=== PATIENT | male | born 1990 | race Caucasian/White ===

== ENCOUNTER 2021-07-02 11:33 | Observation (INO) | payer OTHER ==
[2021-07-02] MEDS ORDERED: MORPHINE SULFATE 2 MG/ML SYRINGE IVP STA ×2 (11:52→13:18)
[2021-07-02] MEDS ORDERED: ONDANSETRON 4 MG/2 ML VIAL IVP STA (11:52)
[2021-07-02] MEDS ORDERED: SODIUM CHLORIDE 0.9% 1,000 ML IV STA (11:52)
--- NOTE | 2021-07-02 11:57 | ED ---
General Adult HPI - General Chief complaint: Abdominal Pain Stated complaint: ABD pain Time Seen by Provider: 07/02/21 11:36 Source: patient Mode of arrival: ambulatory Limitations: no limitations - History of Present Illness Initial comments: This 31-year-old male presents emergency department with abdominal pain that began at noon yesterday. Patient states he started to get some abdominal discomfort around lunchtime yesterday that slowly progressed throughout the day. Patient states today he began to have diarrhea along with vomiting that began this morning and states that is why he presented to the emergency department. Patient denies any hemoptysis or hematochezia. Patient states he has vomited 2 times and had 5-6 episodes of diarrhea today. Patient states his pain is worse with moving or pushing in the center of his abdomen around his umbilicus and feels the pain in bilateral lower quadrants R>L. Patient describes his pain as cramping and sometimes radiates to his back. Patient states his pain is 6/10. Patient states he has had some chills and sweats, however he has not taken his temperature at home. Patient denies any chest pain, shortness of breath, constipation, change in bladder, headache, change in vision, sore throat, cough, congestion or sore throat. Patient states he does smoke marijuana daily and has for years. - Related Data Allergies Allergy/AdvReac Type Severity Reaction Status Date / Time No Known Allergies Allergy Verified 07/02/21 11:36 Review of Systems ROS Statement: Those systems with pertinent positive or pertinent negative responses have been documented in the HPI. ROS Other: All systems not noted in ROS Statement are negative. Past Medical History Past Medical History: No Reported History History of Any Multi-Drug Resistant Organisms: None Reported Past Surgical History: No Surgical Hx Reported Past Psychological History: No Psychological Hx Reported Smoking Status: Current every day smoker, Vaper Past Alcohol Use History: None Reported Past Drug Use History: Marijuana General Exam Limitations: no limitations General appearance: alert, in no apparent distress Head exam: Present: atraumatic, normocephalic Eye exam: Present: normal appearance, PERRL, EOMI ENT exam: Present: mucous membranes moist Neck exam: Present: normal inspection, full ROM. Absent: tenderness, meningismus, lymphadenopathy Respiratory exam: Present: normal lung sounds bilaterally. Absent: respiratory distress, wheezes, rales, rhonchi, stridor, chest wall tenderness Cardiovascular Exam: Present: regular rate, normal rhythm, normal heart sounds. Absent: systolic murmur, diastolic murmur, rubs, gallop, clicks GI/Abdominal exam: Present: soft, tenderness (Diffuse tenderness to palpation in all quadrants, worse in bilateral lower quadrants and umbilicus R>L), normal bowel sounds. Absent: distended, guarding, rebound, rigid Extremities exam: Present: full ROM, normal capillary refill. Absent: pedal edema, joint swelling, calf tenderness Back exam: Present: normal inspection, full ROM, CVA tenderness (R). Absent: CVA tenderness (L), paraspinal tenderness, vertebral tenderness Neurological exam: Present: alert, oriented X3, CN II-XII intact, normal gait Psychiatric exam: Present: normal affect, normal mood Skin exam: Present: warm, dry, intact, normal color. Absent: rash Course Vital Signs 07/02/21 11:34 Temperature 97.6 F Pulse Rate 70 Respiratory 18 Rate Blood Pressure 107/66 O2 Sat by Pulse 97 Oximetry - Reevaluation(s) Reevaluation #1: 07/02/21 12:40 Patient currently states he is feeling symptom improvement. He states he does still have abdominal pain and discomfort, however he states he is not nauseous. On physical exam he does have significant tenderness to right lower and left lower quadrants. 07/02/21 13:[address] Olmedo, patient roping tender to palpation bilateral lower quadrants. We did inform him to keep him in observation and seen by surgery due to his pain and appendix not visualized on CT. Medical Decision Making - Medical Decision Making This 31-year-old male presents to the emergency department with abdominal pain, nausea, vomiting, diarrhea. CT abdomen and pelvis impression: Correlate for enterocolitis. Appendix was not visualized. Labs with WBC 10.8, coagulation unremarkable, chemistry unremarkable, urine 2+ ketones. Patient was given pain medication, fluids and Zofran and stated he had some relief, however he was roping tender in bilateral right and lower quadrants to palpation. Dr. Honorio santillan ssessed the patient and suggested we keep him in observation and seen by surgery. Patient verbally agreed to plan. I discussed this case with who agreed to see the patient and keep patient for observation. Patient placed on fluids, Zofran, morphine and Unasyn - Lab Data Result diagrams: 07/02/21 12:03 07/02/21 12:03 Lab Results 07/02/21 07/02/21 07/02/21 Range/Units 12:03 12:03 12:03 WBC 10.8 H (3.8-10.6) k/uL RBC 4.78 (4.30-5.90) m/uL Hgb 15.3 (13.0-17.5) gm/dL Hct 45.8 (39.0-53.0) % MCV 95.8 (80.0-100.0) fL MCH 32.0 (25.0-35.0) pg MCHC 33.4 (31.0-37.0) g/dL RDW 13.4 (11.5-15.5) % Plt Count 247 (150-450) k/uL MPV 7.1 Neutrophils % 88 % Lymphocytes % 7 % Monocytes % 4 % Eosinophils % 1 % Basophils % 0 % Neutrophils # 9.5 H (1.3-7.7) k/uL Lymphocytes # 0.7 L (1.0-4.8) k/uL Monocytes # 0.4 (0-1.0) k/uL Eosinophils # 0.1 (0-0.7) k/uL Basophils # 0.0 (0-0.2) k/uL PT 10.9 (9.0-12.0) sec INR 1.0 (<1.2) APTT 26.7 (22.0-30.0) sec Sodium (137-145) mmol/L Potassium (3.5-5.1) mmol/L Chloride (98-107) mmol/L Carbon Dioxide (22-30) mmol/L Anion Gap mmol/L BUN (9-20) mg/dL Creatinine (0.66-1.25) mg/dL Est GFR (CKD-EPI)AfAm (>60 ml/min/1.73 sqM) Est GFR (CKD-EPI)NonAf (>60 ml/min/1.73 sqM) Glucose (74-99) mg/dL Plasma Lactic Acid Rivera (0.7-2.0) mmol/L Calcium (8.4-10.2) mg/dL Total Bilirubin (0.2-1.3) mg/dL AST (17-59) U/L ALT (4-49) U/L Alkaline Phosphatase (38-126) U/L Total Protein (6.3-8.2) g/dL Albumin (3.5-5.0) g/dL Lipase (23-300) U/L Urine Color Yellow Urine Appearance Clear (Clear) Urine pH 6.0 (5.0-8.0) Ur Specific [place] 1.025 (1.001-1.035) Urine Protein Trace H (Negative) Urine Glucose (UA) Negative (Negative) Urine Ketones 2+ H (Negative) Urine Blood Negative (Negative) Urine Nitrite Negative (Negative) Urine Bilirubin Negative (Negative) Urine Urobilinogen 2.0 (<2.0) mg/dL Ur Leukocyte Esterase Negative (Negative) 07/02/21 07/02/21 Range/Units 12:03 12:03 WBC (3.8-10.6) k/uL RBC (4.30-5.90) m/uL Hgb (13.0-17.5) gm/dL Hct (39.0-53.0) % MCV (80.0-100.0) fL MCH (25.0-35.0) pg MCHC (31.0-37.0) g/dL RDW (11.5-15.5) % Plt Count (150-450) k/uL MPV Neutrophils % % Lymphocytes % % Monocytes % % Eosinophils % % Basophils % % Neutrophils # (1.3-7.7) k/uL Lymphocytes # (1.0-4.8) k/uL Monocytes # (0-1.0) k/uL Eosinophils # (0-0.7) k/uL Basophils # (0-0.2) k/uL PT (9.0-12.0) sec INR (<1.2) APTT (22.0-30.0) sec Sodium 137 (137-145) mmol/L Potassium 4.2 (3.5-5.1) mmol/L Chloride 106 (98-107) mmol/L Carbon Dioxide 23 (22-30) mmol/L Anion Gap 8 mmol/L BUN 11 (9-20) mg/dL Creatinine 0.77 (0.66-1.25) mg/dL Est GFR (CKD-EPI)AfAm >90 (>60 ml/min/1.73 sqM) Est GFR (CKD-EPI)NonAf >90 (>60 ml/min/1.73 sqM) Glucose 108 H (74-99) mg/dL Plasma Lactic Acid Rivera 1.1 (0.7-2.0) mmol/L Calcium 9.6 (8.4-10.2) mg/dL Total Bilirubin 0.6 (0.2-1.3) mg/dL AST 28 (17-59) U/L ALT 25 (4-49) U/L Alkaline Phosphatase 85 (38-126) U/L Total Protein 8.4 H (6.3-8.2) g/dL Albumin 4.8 (3.5-5.0) g/dL Lipase 31 (23-300) U/L Urine Color Urine Appearance (Clear) Urine pH (5.0-8.0) Ur Specific [place] (1.001-1.035) Urine Protein (Negative) Urine Glucose (UA) (Negative) Urine Ketones (Negative) Urine Blood (Negative) Urine Nitrite (Negative) Urine Bilirubin (Negative) Urine Urobilinogen (<2.0) mg/dL Ur Leukocyte Esterase (Negative) Disposition Clinical Impression: Right lower quadrant pain, Nausea and vomiting, Diarrhea Disposition: ADMITTED IP TO THIS [facility] Condition: Serious Is patient prescribed a controlled substance at d/c from ED?: No Referrals: None,Stated [Primary Care Provider] - 1-2 days Time of Disposition: 13:25
[2021-07-02 12:12] LABS: Appearance,Urine Clear (Clear); Bilirubin,Urine Negative (Negative); Blood,Urine Negative (Negative); Color,Urine Yellow; Glucose,Urine (UA) Negative (Negative); Ketones,Urine 2+ (Negative); Leukocyte Esterase,Urine Negative (Negative); Nitrite,Urine Negative (Negative); Protein,Urine Trace (Negative); Specific Gravity,Urine 1.025 (1.001-1.035)
[2021-07-02 12:20] LABS: ALT 25 U/L (4-49); AST 28 U/L (17-59); African American GFR (CKD) >90 (>60 ml/min/1.73 sqM); Albumin 4.8 g/dL (3.5-5.0); Alkaline Phosphatase 85 U/L (38-126); Anion Gap 8 mmol/L; Blood Urea Nitrogen 11 mg/dL (9-20); Calcium 9.6 mg/dL (8.4-10.2); Carbon Dioxide 23 mmol/L (22-30); Chloride 106 mmol/L (98-107); Glucose 108 mg/dL (74-99); Lipase 31 U/L (23-300); Non-African American GFR(CKD) >90 (>60 ml/min/1.73 sqM); Potassium 4.2 mmol/L (3.5-5.1); Sodium 137 mmol/L (137-145); Total Bilirubin 0.6 mg/dL (0.2-1.3); Total Protein 8.4 g/dL (6.3-8.2)
[2021-07-02 12:21] LABS: Partial Thromboplastin Time 26.7 sec (22.0-30.0); Prothrombin Time 10.9 sec (9.0-12.0)
[2021-07-02 12:35] LABS: Basophils % (A) 0 %; Eosinophils # (A) 0.1 k/uL (0-0.7); Eosinophils % (A) 1 %; HCT 45.8 % (39.0-53.0); HGB 15.3 gm/dL (13.0-17.5); Lymphocytes # (A) 0.7 k/uL (1.0-4.8); Lymphocytes % (A) 7 %; MCHC 33.4 g/dL (31.0-37.0); MCV 95.8 fL (80.0-100.0); Mean Platelet Volume 7.1; Monocytes # (A) 0.4 k/uL (0-1.0); Monocytes % (A) 4 %; Neutrophils # (A) 9.5 k/uL (1.3-7.7); Neutrophils % (A) 88 %; Platelet Count 247 k/uL (150-450); RBC 4.78 m/uL (4.30-5.90); RDW 13.4 % (11.5-15.5); WBC 10.8 k/uL (3.8-10.6)
--- NOTE | 2021-07-02 12:43 | CT ---
EXAMINATION TYPE: CT abdomen pelvis w con DATE OF EXAM: 07/02/2021 COMPARISON: None HISTORY: pain, nausea, vomiting, diarrhea CT DLP: 611.4 mGycm CONTRAST: CT scan of the abdomen and pelvis is performed without Oral Contrast and with IV Contrast, patient in jected with 100 mL of Isovue 300. FINDINGS: LUNG BASES-: No visible nodule. No infiltrate. LIVER/GB: No calcified gallstones. No space occupying hepatic lesion. Biliary tree is of normal ca liber. PANCREAS: No inflammation. No distinct mass. SPLEEN: No splenic enlargement. No lesion seen. ADRENALS: No nodule. No thickening. KIDNEYS/BLADDER: No hydronephrosis. No nephrolithiasis. No distinct renal mass. Urinary bladder g rossly unremarkable. BOWEL: There is wall thickening and fluid distention of small bowel. Wall thickening of the right hem icolon noted as well. Findings may reflect nonspecific enterocolitis. The appendix is not clearly vis ualized and strict clinical correlation is advised. Small amount of free change in the pelvis. No lizz e air or abscess. GENITAL ORGANS: No gross abnormality. LYMPH NODES: No greater than 1cm abdominal or pelvic lymph nodes are appreciated. AORTA: No significant abnormality. OSSEOUS STRUCTURES: No significant abnormality is seen. OTHER: No significant additional abnormality is seen. IMPRESSION: 1. Correlate for enterocolitis. 2. Nonvisualization of the appendix. 3. Small fluid within the pelvis.
[2021-07-02] MEDS ORDERED: ONDANSETRON 4 MG/2 ML VIAL IVP PRN (13:21)
[2021-07-02] MEDS ORDERED: NALOXONE 0.4 MG/ML 1 ML VIAL IV PRN (13:21)
[2021-07-02] MEDS: SODIUM CHLORIDE 0.9% 1,000 ML IV SCH ×2 (14:42→20:13)
[2021-07-02] MEDS: AMPICILLIN-SULBACTAM 1.5 GM in SODIUM CHLORIDE 0.9% 50 ML IVPB SCH ×2 (14:42→20:05)
[2021-07-02] MEDS: MORPHINE SULFATE 4 MG/ML SYRINGE IV PRN ×2 (16:30→20:13)
[2021-07-03] MEDS: MORPHINE SULFATE 4 MG/ML SYRINGE IV PRN ×2 (01:16→05:35)
[2021-07-03] MEDS: AMPICILLIN-SULBACTAM 1.5 GM in SODIUM CHLORIDE 0.9% 50 ML IVPB SCH ×4 (02:05→19:22)
[2021-07-03] MEDS: SODIUM CHLORIDE 0.9% 1,000 ML IV SCH ×2 (05:35→13:55)
[2021-07-03 08:35] LABS: Basophils % (A) 0 %; Eosinophils # (A) 0.1 k/uL (0-0.7); Eosinophils % (A) 1 %; HCT 42.1 % (39.0-53.0); HGB 13.9 gm/dL (13.0-17.5); Lymphocytes # (A) 1.3 k/uL (1.0-4.8); Lymphocytes % (A) 19 %; MCV 96.9 fL (80.0-100.0); Monocytes # (A) 0.3 k/uL (0-1.0); Monocytes % (A) 4 %; Neutrophils # (A) 4.8 k/uL (1.3-7.7); Neutrophils % (A) 73 %; Platelet Count 216 k/uL (150-450); RBC 4.35 m/uL (4.30-5.90); RDW 13.4 % (11.5-15.5); WBC 6.6 k/uL (3.8-10.6)
[2021-07-03 08:40] LABS: African American GFR (CKD) >90 (>60 ml/min/1.73 sqM); Anion Gap 7 mmol/L; Blood Urea Nitrogen 13 mg/dL (9-20); Calcium 8.7 mg/dL (8.4-10.2); Carbon Dioxide 22 mmol/L (22-30); Chloride 107 mmol/L (98-107); Glucose 76 mg/dL (74-99); Non-African American GFR(CKD) >90 (>60 ml/min/1.73 sqM); Sodium 136 mmol/L (137-145)
[2021-07-03] MEDS: ACETAMINOPHEN TAB 325 MG TAB PO PRN ×2 (10:15→19:24)
--- NOTE | 2021-07-03 13:21 | P.GSHP ---
History of Present Illness H&P Date: 07/03/21 CHIEF COMPLAINT: Abdominal pain HISTORY OF PRESENT ILLNESS: This is a 31-year-old male who presented to the hospital with complaints of lower abdominal pain across the lower abdomen that started Saturday. He describes the pain as a cramping sensation. He has been having vomiting and diarrhea. The vomiting and diarrhea started on Saturday. He also was having chills. Denies any blood in his stools. Patient has been having low-grade temp 99. Computed tomography scan showed evidence of an ente rocolitis. Currently on IV antibiotics. He had no further vomiting. He had 3 episodes of diarrhea through the night. Patient denies any history of colonoscopy. Denies any sick contacts. Denies any recent traveling. Patient reports having an episode of a small amount of blood in stool about a week ago which happen sometimes with his hemorrhoids. PAST MEDICAL HISTORY: none PAST SURGICAL HISTORY: No prior surgeries MEDICATIONS: See list. ALLERGIES: See list. SOCIAL HISTORY: No illicit drug use. Marijuana use. They being REVIEW OF SYSTEMS: CONSTITUTIONAL: Denies fever or chills. HEENT: Denies blurred vision, vision changes, or eye pain. Denies hemoptysis CARDIOVASCULAR: Denies chest pain or pressure. RESPIRATORY: No shortness of breath. GASTROINTESTINAL: See HPI for pertinent findings HEMATOLOGIC: Denies bleeding disorders. GENITOURINARY: Denies any blood in urine or increased urinary frequency. SKIN: Denies pruitis. Denies rash. PHYSICAL EXAM: VITAL SIGNS: Reviewed GENERAL: Well-developed in no acute distress. HEENT: No sclera icterus. Extraocular movements grossly intact. Moist buccal mucosa. Head is atraumatic, normocephalic. No nasal drainage. ABDOMEN: Soft. Nondistended. Tenderness with palpation across the lower abdomen NEUROLOGIC: Alert and oriented. Cranial nerves II through XII grossly intact. LABORATORY DATA: WBC 10.8 down to 6.6 hemoglobin 13.9 platelets 216 Sodium 136 potassium 4.0 creatinine 0.68 Liver enzymes normal lipase 31 IMAGING: Computed tomography scan abdomen and pelvis correlate for enterocolitis. Nonvisualization of the appendix. Small fluid within the pelvis. ASSESSMENT: 1. Lower abdominal pain likely secondary to enterocolitis 2. Vomiting and diarrhea PLAN: -No surgical intervention planned -Continue supportive care -Start clear liquids and then advance as tolerated -GI service normally would be consult at. They are not available at this time -Anticipate discharge possibly tomorrow -Continue antibiotics -Continue IV fluids -Continue antiemetics -Continue pain medication as needed -Consult medicine service for medical management -GI prophylaxis Pepcid and DVT prophylaxis subcu heparin Physician [employer] note has been reviewed by physician. Signing provider agrees with the documented findings, assessment, and plan of care. Past Medical History Past Medical History: No Reported History History of Any Multi-Drug Resistant Organisms: None Reported Past Surgical History: No Surgical Hx Reported Past Psychological History: No Psychological Hx Reported Smoking Status: Former smoker Past Alcohol Use History: None Reported Past Drug Use History: Marijuana - Past Family History Mother History Unknown: Yes Additional Family Medical History / Comment(s): had appendix removed as a Medications and Allergies Home Medications Medication Instructions Recorded Confirmed Type No Known Home Medications 07/02/21 07/02/21 History Allergies Allergy/AdvReac Type Severity Reaction Status Date / Time No Known Allergies Allergy Verified 07/02/21 14:41 Surgical - Exam Vital Signs Temp Pulse Resp BP Pulse Ox 97.6 F 70 18 107/66 97 07/02/21 11:34 07/02/21 11:34 07/02/21 11:34 07/02/21 11:34 07/02/21 11:34 Results - Labs 07/03/21 08:04 07/03/21 08:04 Abnormal Lab Results - Last 24 Hours (Table) 07/02/21 07/02/21 07/02/21 Range/Units 12:03 12:03 12:03 WBC 10.8 H (3.8-10.6) k/uL Neutrophils # 9.5 H (1.3-7.7) k/uL Lymphocytes # 0.7 L (1.0-4.8) k/uL Sodium (137-145) mmol/L Glucose 108 H (74-99) mg/dL Total Protein 8.4 H (6.3-8.2) g/dL Urine Protein Trace H (Negative) Urine Ketones 2+ H (Negative) 07/03/21 Range/Units 08:04 WBC (3.8-10.6) k/uL Neutrophils # (1.3-7.7) k/uL Lymphocytes # (1.0-4.8) k/uL Sodium 136 L (137-145) mmol/L Glucose (74-99) mg/dL Total Protein (6.3-8.2) g/dL Urine Protein (Negative) Urine Ketones (Negative) Diabetes panel 07/02/21 07/03/21 Range/Units 12:03 08:04 Sodium 137 136 L (137-145) mmol/L Potassium 4.2 4.0 (3.5-5.1) mmol/L Chloride 106 107 (98-107) mmol/L Carbon Dioxide 23 22 (22-30) mmol/L BUN 11 13 (9-20) mg/dL Creatinine 0.77 0.68 (0.66-1.25) mg/dL Glucose 108 H 76 (74-99) mg/dL Calcium 9.6 8.7 (8.4-10.2) mg/dL AST 28 (17-59) U/L ALT 25 (4-49) U/L Alkaline Phosphatase 85 (38-126) U/L Total Protein 8.4 H (6.3-8.2) g/dL Albumin 4.8 (3.5-5.0) g/dL Calcium panel 07/02/21 07/03/21 Range/Units 12:03 08:04 Calcium 9.6 8.7 (8.4-10.2) mg/dL Albumin 4.8 (3.5-5.0) g/dL Pituitary panel 07/02/21 07/03/21 Range/Units 12:03 08:04 Sodium 137 136 L (137-145) mmol/L Potassium 4.2 4.0 (3.5-5.1) mmol/L Chloride 106 107 (98-107) mmol/L Carbon Dioxide 23 22 (22-30) mmol/L BUN 11 13 (9-20) mg/dL Creatinine 0.77 0.68 (0.66-1.25) mg/dL Glucose 108 H 76 (74-99) mg/dL Calcium 9.6 8.7 (8.4-10.2) mg/dL Adrenal panel 07/02/21 07/03/21 Range/Units 12:03 08:04 Sodium 137 136 L (137-145) mmol/L Potassium 4.2 4.0 (3.5-5.1) mmol/L Chloride 106 107 (98-107) mmol/L Carbon Dioxide 23 22 (22-30) mmol/L BUN 11 13 (9-20) mg/dL Creatinine 0.77 0.68 (0.66-1.25) mg/dL Glucose 108 H 76 (74-99) mg/dL Calcium 9.6 8.7 (8.4-10.2) mg/dL Total Bilirubin 0.6 (0.2-1.3) mg/dL AST 28 (17-59) U/L ALT 25 (4-49) U/L Alkaline Phosphatase 85 (38-126) U/L Total Protein 8.4 H (6.3-8.2) g/dL Albumin 4.8 (3.5-5.0) g/dL
[2021-07-03] MEDS: FAMOTIDINE 20 MG TAB PO SCH (19:21)
[2021-07-03] MEDS: HEPARIN SODIUM,PORCINE/PF 5,000 UNIT/0.5 ML SYRINGE SQ SCH (19:21)
[2021-07-04] MEDS: SODIUM CHLORIDE 0.9% 1,000 ML IV SCH ×2 (01:32→06:25)
[2021-07-04] MEDS: AMPICILLIN-SULBACTAM 1.5 GM in SODIUM CHLORIDE 0.9% 50 ML IVPB SCH ×2 (01:44→08:00)
[2021-07-04] MEDS: FAMOTIDINE 20 MG TAB PO SCH (07:59)
[2021-07-04] MEDS: HEPARIN SODIUM,PORCINE/PF 5,000 UNIT/0.5 ML SYRINGE SQ SCH (07:59)
[2021-07-04 09:35] VITALS: BP 138/71; PULSE 71; RESP 18; TEMP 98.4
[2021-07-04] MEDS: ACETAMINOPHEN TAB 325 MG TAB PO PRN (10:39)
--- NOTE | 2021-07-04 11:33 | P.DS ---
Providers Date of admission: 07/02/21 13:30 Expected date of discharge: 07/04/21 Attending physician: Chase Alston Consults: 07/03/21 11:32 Consult Physician Routine Consulting Provider: Petar Hoyt Consult Reason/Comments: medical management Do you want consulting provider notified?: Yes Primary care physician: Stated None Hospital Course: discharge diagnosis 1. Lower abdominal pain, vomiting and diarrhea secondary to enterocolitis Hospital course This is a 31-year-old male who presented to the hospital with complaints of lower abdominal pain across the lower abdomen that started Saturday. He describes the pain as a cramping sensation. He has been having vomiting and diarrhea. The vomiting and diarrhea started on Saturday. He also was having chills. Denies any blood in his stools. Patient has been having low-grade temp 99. Computed tomography scan showed evidence of an enterocolitis. Patient's abdominal pain and vomiting diarrhea have shown improvement. He has been afebrile. He is tolerating advancement of regular diet. Patient is stable for discharge. He'll be discharged home with Augmentin. Patient follow-up with Dr. Alston to discuss outpatient colonoscopy. Physician [employer] note has been reviewed by physician. Signing provider agrees with the documented findings, assessment, and plan of care. Patient Condition at Discharge: Stable Plan - Discharge Summary Discharge Rx Participant: No New Discharge Prescriptions: New Amoxicillin/Potassium Clav [Augmentin 875-125 Tablet] 1 tab PO Q12HR 7 Days #14 tab Discharge Medication List Amoxicillin/Potassium Clav [Augmentin 875-125 Tablet] 1 tab PO Q12HR 7 Days #14 tab 07/04/21 [Rx] Follow up Appointment(s)/Referral(s): None,Stated [Primary Care Provider] - 1-2 days Chase Alston MD [STAFF PHYSICIAN] - 1 Week Activity/Diet/Wound Care/Special Instructions: Activity as tolerated Regular diet Discharge Disposition: HOME SELF-CARE
--- NOTE | 2021-07-04 14:32 | CONS ---
CONSULTATION REASON FOR CONSULTATION: Abdominal pain and diarrhea requested by surgery. HISTORY OF PRESENT ILLNESS: This 31-year-old gentleman with a past medical history of no significant medical issues being followed by no primary physician in the outpatient setting was admitted with abdominal pain and diarrhea. Patient apparently was eating salmon. The salmon patties were not fully cooked according to him. The patient had abdominal/pelvis CAT scan which showed possible enterocolitis and small fluid within the pelvis also. No chest pain. No palpitations. No fever. PAST MEDICAL HISTORY: No significant cardiovascular illness. MEDICATIONS: Medications none. ALLERGIES: None. FAMILY HISTORY: No significant cardiovascular/pulmonary disease in the family. SOCIAL HISTORY: Previous history of smoking, THC. REVIEW OF SYSTEMS: 14-point review of system is negative except mentioned earlier. PHYSICAL EXAMINATION: Pulse 63, blood pressure 130/64, respirations 15. HEENT: Conjunctive normal. CARDIOVASCULAR system: S1, S2 muffled. RESPIRATION: Breath sounds diminished in the bases. A few scattered rhonchi. ABDOMEN: Soft. Mild diffuse tenderness present. No guarding. No rigidity. Bowel sounds present. LEGS: No edema. No swelling. NERVOUS SYSTEM: No focal deficits. LAB: WBC 6.7, hemoglobin 13.9, sodium 136. ASSESSMENT: 1. Abdominal pain, diarrhea, possible enterocolitis. 2. Rule out food poisoning. 3. Elevated WBC. RECOMMENDATIONS AND DISCUSSION: Recommend to continue current medications, and continue symptomatic treatment, continue the antibiotics, proton pump inhibitors, DVT prophylaxis. Incentive spirometry. We will closely follow with you. Thank you, Dr. Alston. MMODL / IJN: [id number] /
== END 2021-07-04 13:40 | disposition home or self-care (01) ==
LOC: EC 11:33 → 6NMEDSUR 13:30 → 4SSUR 13:35
PROVIDERS: ADMIT Surgery; ATTEND Surgery
DX: K52.9 Noninfective gastroenteritis and colitis, unspecified (principal); K64.9 Unspecified hemorrhoids; F17.290 Nicotine dependence, other tobacco product, uncomplicated; Z90.49 Acquired absence of other specified parts of digestive tract
CPT/HCPCS: 96376 ×2; 96361 ×3; 96365; 96366 ×3; 96372 ×2; 96375; 99285; 36415; 80053; 80048; 83605; 83690; 85025 ×2; 85610; 85730; 81003; 87635; 74177; G0378 ×4; J2270 ×3; J2405; J0295 ×3; Q9967; J1644 ×2

== ENCOUNTER 2021-07-07 14:15 | Emergency (ER) | payer OTHER ==
[2021-07-07 14:30] VITALS: TEMP 98.9
[2021-07-07 15:46] LABS: HCT 38.5 % (39.0-53.0); HGB 12.5 gm/dL (13.0-17.5); MCHC 32.5 g/dL (31.0-37.0); MCV 95.4 fL (80.0-100.0); Platelet Count 296 k/uL (150-450); RBC 4.04 m/uL (4.30-5.90); RDW 13.3 % (11.5-15.5); WBC 5.5 k/uL (3.8-10.6)
--- NOTE | 2021-07-07 15:54 | ED ---
GI Bleed HPI - General Chief complaint: GI Bleed Stated complaint: Bloody Stool Time Seen by Provider: 07/07/21 14:58 Source: patient, RN notes reviewed Mode of arrival: ambulatory Limitations: no limitations - History of Present Illness Initial comments: This is a 31-year-old male who presents to the emergency department for rectal bleeding. He was discharged from the hospital 3 days ago for enterocolitis. States that his discharge paperwork advised him to return to the hospital if he experiences rectal bleeding. He had an episode of rectal bleeding this morning around 10 AM and describes it as being dark red. Prior to this he has softer stools. Denies any history of GI bleeding. When he was in the hospital earlier this week, he had abdominal pain but no rectal bleeding. States that he has mild-moderate abdominal pain at this time. Denies any nausea or vomiting, fevers or chills. MD complaint: gross hematochezia Radiation: none Improves with: none - Related Data Home Medications Medication Instructions Recorded Confirmed Amoxicillin/Potassium Clav 1 tab PO BID 07/07/21 07/07/21 [Augmentin 875-125 Tablet] Allergies Allergy/AdvReac Type Severity Reaction Status Date / Time No Known Allergies Allergy Verified 07/07/21 17:41 Review of Systems ROS Statement: Those systems with pertinent positive or pertinent negative responses have been documented in the HPI. ROS Other: All systems not noted in ROS Statement are negative. Constitutional: Denies: fever, chills ENT: Denies: ear pain, throat pain Respiratory: Denies: cough, dyspnea Cardiovascular: Denies: chest pain, palpitations Gastrointestinal: Reports: abdominal pain, hematochezia. Denies: nausea, vomiting, diarrhea, constipation, hematemesis Genitourinary: Denies: urgency, dysuria Musculoskeletal: Denies: back pain Skin: Denies: rash, lesions Neurological: Denies: headache Past Medical History Past Medical History: No Reported History History of Any Multi-Drug Resistant Organisms: None Reported Past Surgical History: No Surgical Hx Reported Past Psychological History: No Psychological Hx Reported Smoking Status: Former smoker Past Alcohol Use History: None Reported Past Drug Use History: Marijuana - Past Family History Mother History Unknown: Yes Additional Family Medical History / Comment(s): had appendix removed as a General Exam Limitations: no limitations General appearance: alert, in no apparent distress Head exam: Present: atraumatic, normocephalic, normal inspection Respiratory exam: Present: normal lung sounds bilaterally. Absent: respiratory distress, wheezes, rales, rhonchi, stridor Cardiovascular Exam: Present: regular rate, normal rhythm, normal heart sounds. Absent: systolic murmur, diastolic murmur, rubs, gallop, clicks GI/Abdominal exam: Present: soft, normal bowel sounds. Absent: distended, tenderness, guarding, rebound, rigid Neurological exam: Present: alert, oriented X3, CN II-XII intact Psychiatric exam: Present: normal affect, normal mood Skin exam: Present: warm, dry, intact, normal color. Absent: rash Course Vital Signs 07/07/21 14:28 Temperature 98.9 F Pulse Rate 82 Respiratory 20 Rate Blood Pressure 110/61 O2 Sat by Pulse 97 Oximetry Medical Decision Making - Medical Decision Making This is a 31-year-old male who presents to the emergency room with rectal bleeding. Computed tomography scan of the abdomen and pelvis could not rule out a peritonitis, there is also concern for a small bowel intussusception without obstruction, and he is also noted to have elevated liver enzymes compared to his lab work 5 days ago. Denies any history of alcohol use. I reached out to Dr. Ferris, who advised I speak with Dr. Alston, since he evaluated the patient during his previous admission. Dr. Alston states that the patient can be evaluated as an outpatient next week. I also spike with Dr. Tanner from [facility], who is concerned about the patient, and recommended transfer to another hospital where he can be evaluated by gastroenterology. Discussed with the patient that his options at this point are essentially going home and following up with Dr. Alston as an outpatient, or being transferred to another hospital for a more urgent gastroenterology evaluation. Patient plans to go to [facility], but would like to go with his by private vehicle instead of being transferred by EMS. - Lab Data Result diagrams: 07/07/21 15:29 07/07/21 15:29 Lab Results 07/07/21 07/07/21 07/07/21 Range/Units 15:29 15:29 15:29 WBC 5.5 (3.8-10.6) k/uL RBC 4.04 L (4.30-5.90) m/uL Hgb 12.5 L (13.0-17.5) gm/dL Hct 38.5 L (39.0-53.0) % MCV 95.4 (80.0-100.0) fL MCH 31.0 (25.0-35.0) pg MCHC 32.5 (31.0-37.0) g/dL RDW 13.3 (11.5-15.5) % Plt Count 296 (150-450) k/uL MPV 7.0 Neutrophils % (Manual) 41 % Lymphocytes % (Manual) 46 % Monocytes % (Manual) 5 % Eosinophils % (Manual) 8 % Neutrophils # (Manual) 2.26 (1.3-7.7) k/uL Lymphocytes # (Manual) 2.53 (1.0-4.8) k/uL Monocytes # (Manual) 0.28 (0-1.0) k/uL Eosinophils # (Manual) 0.44 (0-0.7) k/uL Nucleated RBCs 0 (0-0) /100 WBC Manual Slide Review Performed APTT 26.7 (22.0-30.0) sec Sodium 139 (137-145) mmol/L Potassium 4.2 (3.5-5.1) mmol/L Chloride 105 (98-107) mmol/L Carbon Dioxide 29 (22-30) mmol/L Anion Gap 5 mmol/L BUN 8 L (9-20) mg/dL Creatinine 0.60 L (0.66-1.25) mg/dL Est GFR (CKD-EPI)AfAm >90 (>60 ml/min/1.73 sqM) Est GFR (CKD-EPI)NonAf >90 (>60 ml/min/1.73 sqM) Glucose 81 (74-99) mg/dL Plasma Lactic Acid Rivera (0.7-2.0) mmol/L Calcium 8.7 (8.4-10.2) mg/dL Total Bilirubin 0.4 (0.2-1.3) mg/dL AST 121 H (17-59) U/L ALT 120 H (4-49) U/L Alkaline Phosphatase 60 (38-126) U/L Total Protein 7.0 (6.3-8.2) g/dL Albumin 4.0 (3.5-5.0) g/dL Amylase 50 (30-110) U/L Lipase 44 (23-300) U/L 07/07/21 Range/Units 15:29 WBC (3.8-10.6) k/uL RBC (4.30-5.90) m/uL Hgb (13.0-17.5) gm/dL Hct (39.0-53.0) % MCV (80.0-100.0) fL MCH (25.0-35.0) pg MCHC (31.0-37.0) g/dL RDW (11.5-15.5) % Plt Count (150-450) k/uL MPV Neutrophils % (Manual) % Lymphocytes % (Manual) % Monocytes % (Manual) % Eosinophils % (Manual) % Neutrophils # (Manual) (1.3-7.7) k/uL Lymphocytes # (Manual) (1.0-4.8) k/uL Monocytes # (Manual) (0-1.0) k/uL Eosinophils # (Manual) (0-0.7) k/uL Nucleated RBCs (0-0) /100 WBC Manual Slide Review APTT (22.0-30.0) sec Sodium (137-145) mmol/L Potassium (3.5-5.1) mmol/L Chloride (98-107) mmol/L Carbon Dioxide (22-30) mmol/L Anion Gap mmol/L BUN (9-20) mg/dL Creatinine (0.66-1.25) mg/dL Est GFR (CKD-EPI)AfAm (>60 ml/min/1.73 sqM) Est GFR (CKD-EPI)NonAf (>60 ml/min/1.73 sqM) Glucose (74-99) mg/dL Plasma Lactic Acid Rivera 0.8 (0.7-2.0) mmol/L Calcium (8.4-10.2) mg/dL Total Bilirubin (0.2-1.3) mg/dL AST (17-59) U/L ALT (4-49) U/L Alkaline Phosphatase (38-126) U/L Total Protein (6.3-8.2) g/dL Albumin (3.5-5.0) g/dL Amylase (30-110) U/L Lipase (23-300) U/L - Radiology Data Radiology results: report reviewed, image reviewed Disposition Clinical Impression: Elevated liver enzymes, Hematochezia, Intussusception of intestine Disposition: OTHER INSTITUTION NOT DEFINED Instructions (If sedation given, give patient instructions): Gastrointestinal Bleeding (ED) Referrals: None,Stated [Primary Care Provider] - 1-2 days - Out of Hospital Transfer - Req. Specs Out of Hospital Transfer - Requested Specifics: Other Emergency Center ([facility])
[2021-07-07 16:08] LABS: Sodium 139 mmol/L (137-145)
[2021-07-07 16:09] LABS: ALT 120 U/L (4-49); AST 121 U/L (17-59); African American GFR (CKD) >90 (>60 ml/min/1.73 sqM); Alkaline Phosphatase 60 U/L (38-126); Amylase 50 U/L (30-110); Anion Gap 5 mmol/L; Blood Urea Nitrogen 8 mg/dL (9-20); Calcium 8.7 mg/dL (8.4-10.2); Carbon Dioxide 29 mmol/L (22-30); Chloride 105 mmol/L (98-107); Glucose 81 mg/dL (74-99); Lipase 44 U/L (23-300); Non-African American GFR(CKD) >90 (>60 ml/min/1.73 sqM); Potassium 4.2 mmol/L (3.5-5.1); Total Bilirubin 0.4 mg/dL (0.2-1.3)
--- NOTE | 2021-07-07 16:26 | CT ---
EXAMINATION TYPE: CT abdomen pelvis w con DATE OF EXAM: 07/07/2021 COMPARISON: CT dated 07/02/2021 HISTORY: ABD pain and diarrhea x 1 week, bloody stool x [address] DLP: 569.2 mGycm Automated exposure control for dose reduction was used. TECHNIQUE: Helical acquisition of images was performed from the lung bases through the pelvis. CONTRAST: Performed without Oral Contrast and with IV Contrast, patient injected with 100ml mL of Isovue 300. FINDINGS: LUNG BASES: No significant abnormality is appreciated. LIVER/GB: Enlarged liver measuring 20 cm. No definite hepatic focal lesion. Unremarkable gallbladder. PANCREAS: No significant abnormality is seen. SPLEEN: No significant abnormality is seen. ADRENALS: No significant abnormality is seen. KIDNEYS: No significant abnormality is seen. FREE AIR: No free air is visualized. RETROPERITONEAL ADENOPATHY: None visualized REPRODUCTIVE ORGANS: No significant abnormality is seen URINARY BLADDER: No significant abnormality is seen. PELVIC ADENOPATHY: None visualized. OSSEOUS STRUCTURES: No aggressive bone lesion. BOWEL: Distended stomach. Unremarkable duodenum. Suboptimal assessment of the small and large bowel due to paucity of intra-abdominal fat and lack of oral contrast administration. Segments of small bow el thickening, probably related to mild inflammatory changes like enteritis. Suspected small bowel in tussusception seen in the midline in the lower abdomen best appreciated in image #51, series 201 and image #60, series 203. No bowel obstruction however there is possible pneumatosis of the small bowel at that location versus luminal gas. No free peritoneal air or portal venous gas. Segments of colonic wall thickening with surrounding fat stranding, also seen in the rectum which could be related to mi ld colitis/proctitis. Fecal loading of the proximal colon. It is not possible to exclude acute divert iculitis or other acute colonic abnormality by this CT scan. Small amount of free pelvic fluid. OTHER: Unremarkable abdominal aorta. Peritoneal fat stranding, peritonitis cannot be excluded, please correlate clinically. IMPRESSION: Suboptimal assessment of the small and large bowel as described above. With this limitation, there ar e persistent signs suggestive of acute inflammatory/infectious process of the small and large bowel. Small amount of free pelvic fluid with peritoneal fat stranding, peritonitis can't be excluded. Suspected short segment of small bowel intussusception in the midline in the lower abdomen below the level of the umbilicus as detailed above without evidence of bowel obstruction. Small bowel pneumatos is versus air is seen at that location. Recommend clinical correlation and surgical consultation. Ot er incidental findings as described above.
[2021-07-07 17:06] LABS: Eosinophils # (M) 0.44 k/uL (0-0.7); Lymphocytes # (M) 2.53 k/uL (1.0-4.8); Monocytes # (M) 0.28 k/uL (0-1.0); Neutrophils # (M) 2.26 k/uL (1.3-7.7); Neutrophils % (M) 41 %; Nucleated Red Blood Cells 0 /100 WBC (0-0); Total Cells Counted 100
[2021-07-07 18:42] VITALS: PULSE 87; RESP 18
[2021-07-07 18:59] VITALS: BP 121/78
== END 2021-07-07 19:04 | disposition other institution (70) ==
LOC: EC 14:15
DX: K92.1 Melena (principal); K56.1 Intussusception; R74.8 Abnormal levels of other serum enzymes; Z87.891 Personal history of nicotine dependence
CPT/HCPCS: 36415; 80053; 82150; 83605; 83690; 85025; 85730; 74177; 99285; Q9967

== ENCOUNTER 2021-07-21 12:36 | Emergency (ER) | payer OTHER ==
[2021-07-21 12:43] VITALS: RESP 18
[2021-07-21] MEDS ORDERED: SODIUM CHLORIDE 0.9% 1,000 ML IV ONE (13:00)
--- NOTE | 2021-07-21 13:00 | ED ---
General Adult HPI - General Chief complaint: Abdominal Pain Stated complaint: Blood in stool Time Seen by Provider: 07/21/21 12:45 Source: patient Mode of arrival: ambulatory Limitations: no limitations - History of Present Illness Initial comments: Patient presents to the ED stating that he has had lower abdominal pain and rectal bleeding since yesterday. Patient was seen in the ED and transferred to [facility] after presenting with similar symptoms earlier this month. Patient states that he saw a GI specialist at [facility], and he was told that they suspected possible intussusception. Patient states that he was discharged home the next day on antibiotics, and he states that he completed his course of antibiotics about a week ago. Patient denies undergoing any procedure or surgery while at [facility]. Patient states that he saw Dr. Alston (general surgery) a week ago, and patient states that Dr. Alston said that he would schedule the patient for colonoscopy if his symptoms returned. Patient states that his pain has been waxing and waning since last night, and he states it is currently 1210. Patient denies trauma or injury, fever or chills, headache, focal neuro deficit, chest pain or pressure, dyspnea, cough or cold symptoms, palpitations, dizziness, upper abdominal pain, back or flank pain, nausea or vomiting, diarrhea or constipation, dysuria/hematuria/urinary frequency/urinary symptoms, or any other symptoms or complaints. Patient denies anticoagulant medication use. - Related Data Home Medications Medication Instructions Recorded Confirmed No Known Home Medications 07/21/21 07/21/21 Allergies Allergy/AdvReac Type Severity Reaction Status Date / Time No Known Allergies Allergy Verified 07/21/21 13:35 Review of Systems ROS Statement: Those systems with pertinent positive or pertinent negative responses have been documented in the HPI. ROS Other: All systems not noted in ROS Statement are negative. Past Medical History Past Medical History: No Reported History History of Any Multi-Drug Resistant Organisms: None Reported Past Surgical History: No Surgical Hx Reported Past Psychological History: No Psychological Hx Reported Smoking Status: Former smoker Past Alcohol Use History: None Reported Past Drug Use History: Marijuana - Past Family History Mother History Unknown: Yes Additional Family Medical History / Comment(s): had appendix removed as a General Exam Limitations: no limitations General appearance: alert, in no apparent distress Head exam: Present: atraumatic, normocephalic Eye exam: Present: normal appearance, EOMI ENT exam: Present: mucous membranes moist Neck exam: Present: other (Trachea is in midline) Respiratory exam: Present: normal lung sounds bilaterally. Absent: respiratory distress, wheezes, rales, rhonchi, stridor Cardiovascular Exam: Present: regular rate, normal rhythm, normal heart sounds, other (Normal radial pulses bilaterally) GI/Abdominal exam: Present: soft, normal bowel sounds, other (Mild suprapubic abdominal tenderness). Absent: distended, guarding, rebound Rectal exam: Present: normal inspection, normal rectal tone, other (A small amount of brown stool was retrieved from rectal vault). Absent: tenderness Extremities exam: Absent: pedal edema Back exam: Absent: CVA tenderness (R), CVA tenderness (L) Neurological exam: Present: alert, oriented X3. Absent: motor sensory deficit Psychiatric exam: Present: normal affect, normal mood Skin exam: Present: warm, dry, intact, normal color Course Vital Signs 07/21/21 12:40 Temperature 98.8 F Pulse Rate 84 Respiratory 18 Rate Blood Pressure 124/74 O2 Sat by Pulse 99 Oximetry - Reevaluation(s) Reevaluation #1: 07/21/21 14:32 Case, H&P and test results were discussed with Dr. Alston (general surgery) who has been following the patient as an outpatient. He states that he does not feel that the patient needs to be admitted to the hospital at this time. He recommends outpatient follow-up with him in his clinic. He has no further rec ommendations at this time. 07/21/21 14:46 Patient denies development of any new symptoms while in the ED. Patient's abdomen remains soft and without any surgical signs on examination. Patient is aware of his test results and my discussion with Dr. Alston as above, and he feels comfortable being discharged home at this time. Patient was counseled about abdominal pain and rectal bleeding. Patient was clearly explained return and follow-up instructions, and he was instructed to have a low threshold for return to the emergency department should his symptoms worsen. Patient was also instructed to follow up closely with his primary care provider, as well as Dr. Alston in his clinic. Patient feels comfortable with this plan. Medical Decision Making - Medical Decision Making Patient's labs and imaging studies are fairly unremarkable. Patient's hemoglobin is within normal limits. Patient's stool Hemoccult is negative. Patient has a soft and nonsurgical abdominal exam. Dr. Alston (general surgery) was contacted by phone from the emergency department, and he recommends outpatient follow-up with him in his clinic. Will discharge patient home at this time. Patient feels comfortable with this plan. - Lab Data Result diagrams: 07/21/21 13:02 07/21/21 13:02 Lab Results 07/21/21 07/21/21 07/21/21 Range/Units 13:00 13:02 13:02 WBC 7.3 (3.8-10.6) k/uL RBC 4.33 (4.30-5.90) m/uL Hgb 13.5 (13.0-17.5) gm/dL Hct 41.5 (39.0-53.0) % MCV 95.8 (80.0-100.0) fL MCH 31.3 (25.0-35.0) pg MCHC 32.6 (31.0-37.0) g/dL RDW 13.1 (11.5-15.5) % Plt Count 315 (150-450) k/uL MPV 7.0 Neutrophils % 60 % Lymphocytes % 29 % Monocytes % 5 % Eosinophils % 3 % Basophils % 1 % Neutrophils # 4.4 (1.3-7.7) k/uL Lymphocytes # 2.1 (1.0-4.8) k/uL Monocytes # 0.4 (0-1.0) k/uL Eosinophils # 0.2 (0-0.7) k/uL Basophils # 0.1 (0-0.2) k/uL PT 10.9 (9.0-12.0) sec INR 1.0 (<1.2) APTT 26.7 (22.0-30.0) sec Sodium (137-145) mmol/L Potassium (3.5-5.1) mmol/L Chloride (98-107) mmol/L Carbon Dioxide (22-30) mmol/L Anion Gap mmol/L BUN (9-20) mg/dL Creatinine (0.66-1.25) mg/dL Est GFR (CKD-EPI)AfAm (>60 ml/min/1.73 sqM) Est GFR (CKD-EPI)NonAf (>60 ml/min/1.73 sqM) Glucose (74-99) mg/dL Plasma Lactic Acid Rivera (0.7-2.0) mmol/L Calcium (8.4-10.2) mg/dL Total Bilirubin (0.2-1.3) mg/dL AST (17-59) U/L ALT (4-49) U/L Alkaline Phosphatase (38-126) U/L Total Protein (6.3-8.2) g/dL Albumin (3.5-5.0) g/dL Amylase (30-110) U/L Lipase (23-300) U/L Urine Color Urine Appearance (Clear) Urine pH (5.0-8.0) Ur Specific [place] (1.001-1.035) Urine Protein (Negative) Urine Glucose (UA) (Negative) Urine Ketones (Negative) Urine Blood (Negative) Urine Nitrite (Negative) Urine Bilirubin (Negative) Urine Urobilinogen (<2.0) mg/dL Ur Leukocyte Esterase (Negative) Stool Occult Blood Negative (Negative) Blood Type Blood Type Recheck Bld Type Recheck Status Antibody Screen Spec Expiration Date 07/21/21 07/21/21 07/21/21 Range/Units 13:02 13:02 13:02 WBC (3.8-10.6) k/uL RBC (4.30-5.90) m/uL Hgb (13.0-17.5) gm/dL Hct (39.0-53.0) % MCV (80.0-100.0) fL MCH (25.0-35.0) pg MCHC (31.0-37.0) g/dL RDW (11.5-15.5) % Plt Count (150-450) k/uL MPV Neutrophils % % Lymphocytes % % Monocytes % % Eosinophils % % Basophils % % Neutrophils # (1.3-7.7) k/uL Lymphocytes # (1.0-4.8) k/uL Monocytes # (0-1.0) k/uL Eosinophils # (0-0.7) k/uL Basophils # (0-0.2) k/uL PT (9.0-12.0) sec INR (<1.2) APTT (22.0-30.0) sec Sodium 141 (137-145) mmol/L Potassium 4.1 (3.5-5.1) mmol/L Chloride 105 (98-107) mmol/L Carbon Dioxide 27 (22-30) mmol/L Anion Gap 9 mmol/L BUN 15 (9-20) mg/dL Creatinine 0.75 (0.66-1.25) mg/dL Est GFR (CKD-EPI)AfAm >90 (>60 ml/min/1.73 sqM) Est GFR (CKD-EPI)NonAf >90 (>60 ml/min/1.73 sqM) Glucose 98 (74-99) mg/dL Plasma Lactic Acid Rivera 1.4 (0.7-2.0) mmol/L Calcium 9.5 (8.4-10.2) mg/dL Total Bilirubin 0.7 (0.2-1.3) mg/dL AST 26 (17-59) U/L ALT 33 (4-49) U/L Alkaline Phosphatase 73 (38-126) U/L Total Protein 8.3 H (6.3-8.2) g/dL Albumin 4.9 (3.5-5.0) g/dL Amylase 72 (30-110) U/L Lipase 119 (23-300) U/L Urine Color Yellow Urine Appearance Clear (Clear) Urine pH 5.5 (5.0-8.0) Ur Specific [place] 1.021 (1.001-1.035) Urine Protein Negative (Negative) Urine Glucose (UA) Negative (Negative) Urine Ketones Negative (Negative) Urine Blood Negative (Negative) Urine Nitrite Negative (Negative) Urine Bilirubin Negative (Negative) Urine Urobilinogen <2.0 (<2.0) mg/dL Ur Leukocyte Esterase Negative (Negative) Stool Occult Blood (Negative) Blood Type Blood Type Recheck Bld Type Recheck Status Antibody Screen Spec Expiration Date 07/21/21 Range/Units 13:02 WBC (3.8-10.6) k/uL RBC (4.30-5.90) m/uL Hgb (13.0-17.5) gm/dL Hct (39.0-53.0) % MCV (80.0-100.0) fL MCH (25.0-35.0) pg MCHC (31.0-37.0) g/dL RDW (11.5-15.5) % Plt Count (150-450) k/uL MPV Neutrophils % % Lymphocytes % % Monocytes % % Eosinophils % % Basophils % % Neutrophils # (1.3-7.7) k/uL Lymphocytes # (1.0-4.8) k/uL Monocytes # (0-1.0) k/uL Eosinophils # (0-0.7) k/uL Basophils # (0-0.2) k/uL PT (9.0-12.0) sec INR (<1.2) APTT (22.0-30.0) sec Sodium (137-145) mmol/L Potassium (3.5-5.1) mmol/L Chloride (98-107) mmol/L Carbon Dioxide (22-30) mmol/L Anion Gap mmol/L BUN (9-20) mg/dL Creatinine (0.66-1.25) mg/dL Est GFR (CKD-EPI)AfAm (>60 ml/min/1.73 sqM) Est GFR (CKD-EPI)NonAf (>60 ml/min/1.73 sqM) Glucose (74-99) mg/dL Plasma Lactic Acid Rivera (0.7-2.0) mmol/L Calcium (8.4-10.2) mg/dL Total Bilirubin (0.2-1.3) mg/dL AST (17-59) U/L ALT (4-49) U/L Alkaline Phosphatase (38-126) U/L Total Protein (6.3-8.2) g/dL Albumin (3.5-5.0) g/dL Amylase (30-110) U/L Lipase (23-300) U/L Urine Color Urine Appearance (Clear) Urine pH (5.0-8.0) Ur Specific [place] (1.001-1.035) Urine Protein (Negative) Urine Glucose (UA) (Negative) Urine Ketones (Negative) Urine Blood (Negative) Urine Nitrite (Negative) Urine Bilirubin (Negative) Urine Urobilinogen (<2.0) mg/dL Ur Leukocyte Esterase (Negative) Stool Occult Blood (Negative) Blood Type O Positive Blood Type Recheck No Previous Record Bld Type Recheck Status CABO Indicated Antibody Screen NEGATIVE Spec Expiration Date 07/24/2021 - 2302 - Radiology Data CT angiogram abdomen/pelvis with IV contrast: No suspicious bowel enhancement to localize source of active hemorrhage. Disposition Clinical Impression: Abdominal pain, Rectal bleeding Disposition: HOME SELF-CARE Condition: Stable Instructions (If sedation given, give patient instructions): Rectal Bleeding (ED), Abdominal Pain (ED) Additional Instructions: Return to the ER immediately should you develop new or worsening pain, increased bleeding, feeling dizzy or faint, shortness of breath, a fever, vomiting, or new or worsening symptoms. Follow up closely with your primary care provider, as well as Dr. Alston (general surgery). Is patient prescribed a controlled substance at d/c from ED?: No Referrals: López Byrne MD [Primary Care Provider] - 1-2 days Chase Alston MD [STAFF PHYSICIAN] - 1-2 days Time of Disposition: 14:48
[2021-07-21 13:20] LABS: Basophils # (A) 0.1 k/uL (0-0.2); Basophils % (A) 1 %; Eosinophils # (A) 0.2 k/uL (0-0.7); Eosinophils % (A) 3 %; HCT 41.5 % (39.0-53.0); HGB 13.5 gm/dL (13.0-17.5); Lymphocytes # (A) 2.1 k/uL (1.0-4.8); Lymphocytes % (A) 29 %; MCH 31.3 pg (25.0-35.0); MCHC 32.6 g/dL (31.0-37.0); MCV 95.8 fL (80.0-100.0); Monocytes # (A) 0.4 k/uL (0-1.0); Monocytes % (A) 5 %; Neutrophils # (A) 4.4 k/uL (1.3-7.7); Neutrophils % (A) 60 %; Platelet Count 315 k/uL (150-450); RBC 4.33 m/uL (4.30-5.90); RDW 13.1 % (11.5-15.5); WBC 7.3 k/uL (3.8-10.6)
[2021-07-21 13:24] LABS: Appearance,Urine Clear (Clear); Bilirubin,Urine Negative (Negative); Blood,Urine Negative (Negative); Color,Urine Yellow; Glucose,Urine (UA) Negative (Negative); Ketones,Urine Negative (Negative); Leukocyte Esterase,Urine Negative (Negative); Nitrite,Urine Negative (Negative); PH, Urine 5.5 (5.0-8.0); Protein,Urine Negative (Negative); Specific Gravity,Urine 1.021 (1.001-1.035); Urobilinogen,Urine <2.0 mg/dL (<2.0)
[2021-07-21 13:29] LABS: ALT 33 U/L (4-49); AST 26 U/L (17-59); African American GFR (CKD) >90 (>60 ml/min/1.73 sqM); Albumin 4.9 g/dL (3.5-5.0); Alkaline Phosphatase 73 U/L (38-126); Amylase 72 U/L (30-110); Anion Gap 9 mmol/L; Blood Urea Nitrogen 15 mg/dL (9-20); Calcium 9.5 mg/dL (8.4-10.2); Carbon Dioxide 27 mmol/L (22-30); Chloride 105 mmol/L (98-107); Glucose 98 mg/dL (74-99); Lipase 119 U/L (23-300); Non-African American GFR(CKD) >90 (>60 ml/min/1.73 sqM); Potassium 4.1 mmol/L (3.5-5.1); Sodium 141 mmol/L (137-145); Total Bilirubin 0.7 mg/dL (0.2-1.3); Total Protein 8.3 g/dL (6.3-8.2)
[2021-07-21 13:31] LABS: Partial Thromboplastin Time 26.7 sec (22.0-30.0); Prothrombin Time 10.9 sec (9.0-12.0)
--- NOTE | 2021-07-21 14:25 | CT ---
EXAMINATION TYPE: CT angio abdomen pelvis DATE OF EXAM: 07/21/2021 COMPARISON: CT abdomen and pelvis July 07, 2021 and July 02, 2021 HISTORY: Abdominal pain, rectal bleeding, hx intussusception. GI bleed protocol. CT DLP: 1446.2 mGycm, Automated Exposure Control for Dose Reduction was Utilized. CONTRAST: CTA scan of the abdomen and pelvis is performed without oral and without and with IV Contrast, patien t injected with 100 mL of Isovue 370. GI bleed protocol. FINDINGS: Vascular: Satisfactory enhancement of the aorta along with celiac artery and SMA, accessory right chema al artery. Patent JEROME. Patent iliac and femoral artery vessels without significant plaque or stenosis . No aneurysm or dissection. LUNG BASES: No significant abnormality is appreciated. LIVER/GB: Mild hepatomegaly redemonstrated. PANCREAS: No significant abnormality is seen. SPLEEN: No significant abnormality is seen. ADRENALS: No significant abnormality is seen. KIDNEYS: No significant abnormality is seen. BOWEL: Patient has little intra-abdominal fat. No suspicious small or large bowel dilatation. No focu s of internal intraluminal density in bowel to suggest active hemorrhage. Debris-filled stomach sugge sts recent meal ingestion. Prior visualized focal small bowel intussusception not clearly seen. PROSTATE/SEMINAL VESICLES: No gross abnormality seen. LYMPH NODES: No greater than 1cm abdominal or pelvic lymph nodes are appreciated. OSSEOUS STRUCTURES: No significant abnormality is seen. OTHER: A few scattered left-sided pelvic phleboliths redemonstrated. IMPRESSION: No suspicious bowel enhancement to localize source of active hemorrhage.
[2021-07-21 15:33] VITALS: BP 122/68; PULSE 88; TEMP 98.7
== END 2021-07-21 15:32 | disposition home or self-care (01) ==
LOC: EC 12:36
DX: K62.5 Hemorrhage of anus and rectum (principal); R10.30 Lower abdominal pain, unspecified; Z87.891 Personal history of nicotine dependence
CPT/HCPCS: 36415; 86900; 86901; 80053; 82150; 83605; 83690; 85025; 85610; 85730; 86850; 82272; 81003; 74174; 99284; 96360; Q9967

== ENCOUNTER → 2021-08-03 | Day surgery (SDC) | payer OTHER ==
[2021-08-02 08:49] VITALS: BMI 21.4
[~2021-08-03] MED LIST: IV FLUID CONTINUATION 1,000 ML IV ONE; LACTATED RINGERS 1,000 ML IV SCH; LIDOCAINE 1% (10MG/ML) FOR IV START INTRADERMA PRN; PROPOFOL 10 MG/ML 20 ML VIAL IV ONE
[2021-08-03 11:07] VITALS: TEMP 97.6
--- NOTE | 2021-08-03 12:31 | P.GSHP ---
History of Present Illness H&P Date: 08/03/21 Chief Complaint: GI bleed, history of colitis This a 31-year-old male. He has had a recent hospital admission for colitis. Patient had some minimal rectal bleeding. He presents today for colonoscopy Past Medical History Past Medical History: No Reported History Additional Past Medical History / Comment(s): intermittent diarrhea/vomiting/abdominal cramping with colitis and gastritis w/ rectal bleeding starting approx last 3 weeks History of Any Multi-Drug Resistant Organisms: None Reported Past Surgical History: No Surgical Hx Reported Additional Past Surgical History / Comment(s): wisdom teeth Past Anesthesia/Blood Transfusion Reactions: No Reported Reaction Smoking Status: Former smoker - Past Family History Mother History Unknown: Yes Additional Family Medical History / Comment(s): had appendix removed as a Medications and Allergies Home Medications Medication Instructions Recorded Confirmed Type No Known Home Medications 07/21/21 08/02/21 History Allergies Allergy/AdvReac Type Severity Reaction Status Date / Time No Known Allergies Allergy Verified 08/03/21 11:04 Surgical - Exam Vital Signs Temp Pulse Resp BP Pulse Ox 97.6 F 76 20 129/69 99 08/03/21 11:07 08/03/21 11:07 08/03/21 11:07 08/03/21 11:07 08/03/21 11:07 - General well developed, well nourished, no distress - Eyes PERRL - ENT normal pinna - Neck no masses - Respiratory normal expansion - Cardiovascular Rhythm: regular - Abdomen Abdomen: soft, non tender Assessment and Plan Assessment: Colitis GI bleed We'll perform colonoscopy
--- NOTE | 2021-08-03 12:45 | P.OP ---
Date of Procedure: 08/03/21 Preoperative Diagnosis: GI bleed History of colitis Postoperative Diagnosis: External hemorrhoids Normal colonoscopy Procedure(s) Performed: Colonoscopy Anesthesia: MAC Surgeon: Chase Alston Pathology: none sent Condition: stable Disposition: PACU Description of Procedure: The patient's placed on the endoscopy table. He received IV sedation. Digital rectal exam was performed there were external hemorrhoids noted. The flexible colonoscope was then placed patient anus passed rotator entire colon. The ileocecal valve was visually is. The cecum, ascending and transverse colon appeared normal. The descending and sigmoid colon.. The scope was then brought back the rectum this appeared normal. Scope withdrawn for patient. There is known to GI bleed. Presumed patient may have bleeding from external hemorrhoids.
[2021-08-03 13:09] VITALS: BP 103/63; PULSE 55; RESP 17
== END | disposition home or self-care (01) ==
LOC: ORWHC2ENDO 09:53
PROVIDERS: ATTEND Surgery
DX: K64.4 Residual hemorrhoidal skin tags (principal); K92.2 Gastrointestinal hemorrhage, unspecified; R11.10 Vomiting, unspecified; Z98.890 Other specified postprocedural states; Z87.891 Personal history of nicotine dependence; G35 Multiple sclerosis
CPT/HCPCS: 45378; J2704